=== PATIENT | female | born 1925 | race Caucasian/White ===

== ENCOUNTER 2016-09-03 14:07 | Inpatient (IN) | payer OTHER ==
--- NOTE | ~2016-09-03 | DS ---
Unit #: [id number] #: [id number] Patient: MEGAN HILL [id number] [address] [address] [id number] I MR#: [id number] NAME: MEGAN HILL ROOM: 328 Age: 89 Sex: F Admission Date: 09/03/2016 : 1925 Discharge Date: 09/04/2016 Attending Physician: Adia Diggs M.D. Primary Care Physician: No Primary Care Physician DISCHARGE SUMMARY PRINCIPAL DIAGNOSES 1. Gram negative krissy urinary tract infection with pending urine culture. 2. Toxic metabolic encephalopathy secondary to number one. Now returned to baseline. 3. 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 Discharge creatinine 1.0. 4. Mild hypercalcemia with discharge calcium level of 10.3. 5. Severe dementia. 6. Mild dysphagia. 7. Bradycardia with heart rate into the low 40s. 8. Hypertension. 9. History of diabetes mellitus type 2, currently diet controlled. 10. Hyperlipidemia off of statin therapy. 11. Osteoporosis. 12. History of vitamin B12 deficiency. 13. Asymptomatic bradycardia. CONSULTANTS None. DIAGNOSTIC DATA CT scan of the head without contrast on 09/03/2016 without acute findings. There is generalized cerebral cortical atrophy and chronic ischemic changes in the deep white matter bilaterally. Chest x-ray on 09/03/2016 with stable cardiac enlargement and low lung volumes. No other acute findings. CLINICAL HISTORY/HOSPITAL COURSE Ms. Hill is an 89-year-old female, long-term resident of [facility], who presented to the emergency department with increasing confusion. In the emergency department the patient was found to have urinary tract infection and she was subsequently admitted. The patient was started on empiric Rocephin. She remained afebrile throughout hospitalization and white blood cell count has remained normal. With antibiotic therapy the patient's mental status has returned to her baseline, according to her granddaughter. At baseline the patient is minimally interactive, but can awaken and answer questions, which is how she is acting currently. Review of urine cultures reveals she generally has for the most part pansensitive infection. Thus, I am going to change her to ciprofloxacin and will follow up urine culture tomorrow to ensure treatment is appropriate. I will contact the nursing facility if it is not. Unit #: [id number] #: [id number] Patient: MEGAN HILL The patient did have a mildly elevated creatinine of 1.3 upon presentation, which appears to be close to her baseline. Creatinine today is down to 1.0. The patient's other chronic conditions remain stable. She will be discharged back to the nursing facility today, which I have discussed with her granddaughter. I will note the patient did become bradycardic during hospitalization, with heart rate running in the high 30s to low 40s. I discussed this with the patient's granddaughter, who does not wish for the patient to have any workup or intervention at this time, particularly given it will not improve the patient's quality of life. DISCHARGE CONDITION Stable. DISCHARGE DISPOSITION Discharge back to the nursing facility. DISCHARGE MEDICATIONS 1. Ciprofloxacin 500 mg p.o. b.i.d. for 2 days. 2. Aspirin 81 mg daily. 3. Senna 8.6 mg b.i.d. 4. Milk of Magnesia 3 ml p.o. daily p.r.n. constipation. 5. Claritin 10 mg daily. 6. Alovesto topically to buttocks and geo area daily. 7. Zofran 4 mg p.o. q.6 h. p.r.n. nausea. 8. Tylenol 500 mg p.o. q.4 h. p.r.n. pain or fever. DIET The patient was instructed to follow a pureed diet with thin liquids. ACTIVITY Increase as tolerated. FOLLOWUP The patient will follow up with Dr. Mccullough upon return to the facility. Again, I will follow up urine culture tomorrow to ensure treatment is appropriate. I recommend BMP in approximately one week to follow up hypercalcemia and check PTH if pending. Dictated by... Adia Diggs M.D. Layne TD: 09/04/2016 09:33 JOB #: [id number] CC: Bright Mccullough M.D. Unit #: [id number] #: [id number] Patient: MEGAN HILL DISCHARGE SUMMARY Page 1 of 1 X Adia Diggs MD X DISCHARGE SUMMARY
--- NOTE | ~2016-09-03 | EKG ---
PATIENT: MEGAN JASON UNIT #: [id number] Ventricular Rate: 50 BPM Atrial Rate: 50 BPM P-R Interval: 210 ms QRS Duration: 144 ms Q-T Interval: 490 ms QTC Calculation(Bezet): 446 ms P Vichy: 35 degrees Calculated R Vichy: -23 degrees Calculated T Vichy: 148 degrees Diagnosis Line: Sinus bradycardia with 1st degree A-V block with Diagnosis Line: occasional Premature ventricular complexes Diagnosis Line: Left bundle branch block Diagnosis Line: Abnormal ECG Diagnosis Line: Diagnosis Line: Confirmed by SIMEON DALTON MD ([id number]) on Diagnosis Line: 09/04/2016 10:03:59 PM INTERPRETING MD: HYUN
--- NOTE | ~2016-09-03 | CR72 ---
[facility] A Service of [facility] & [facility] RADIOLOGY TEXT RESULTS PATIENT: MEGAN JASON LOCATION: [facility] 328- : [birth year] UNIT #: [id number] AGE: [address]: Adia Diggs MD SEX: F ORDER DR: [id number] [facility] [address] [facility] [place], [place] [address] [id number] I MR#: [id number] Acc #: [id number] NAME: MEGAN JASON : 1925 SEX: F STUDY DATE/TIME: 09/03/2016 14:47 UNIT: [address] ROOM: [facility] STUDY DESCRIPTION: CR Chest Single View Portable Attending Physician: Hill Jo M.D. Ordering Physician: oSn Jackman D.O. Primary Care Physician: No Primary Care Physician MEDICAL IMAGING REPORT This report is preliminary unless electronic signature is present EXAM Portable chest x-ray HISTORY Altered mental status. Diabetes kidney disease, weakness, short of air began today. FINDINGS AP radiograph of the chest is presented. Poor quality study due to radiographic processing artifact. Stable cardiac enlargement. Lung volumes low. Atelectasis or scarring left lung base. There is no clear indication of acute infectious or inflammatory pulmonary disease. There is no pleural effusion or pneumothorax. No suspicious nodule. Healed granulomatous disease bilaterally. Degenerative changes in the spine and shoulders. No acute-appearing bony abnormality. Dictated by... Tal Ortiz M.D. THIS IS AN ELECTRONICALLY VERIFIED REPORT Tal Ortiz M.D. at 09/05/2016 11:31 AM GERMANIA/trevor TD: 09/03/2016 23:19 JOB #: [id number] MEDICAL IMAGING REPORT Page 1 of 1 COPY
--- NOTE | ~2016-09-03 | CT71 ---
[facility] A Service of [facility] RADIOLOGY TEXT RESULTS PATIENT: MEGAN JASON LOCATION: [facility] : [birth year] UNIT #: [id number] AGE: [address]: Adia Diggs MD SEX: F ORDER DR: [id number] [facility] [address] [place], [place] [address] [id number] MR#: [id number] Acc #: [id number] NAME: MEGAN JASON : 1925 SEX: F STUDY DATE/TIME: 09/03/2016 15:29 UNIT: [address] ROOM: [facility] STUDY DESCRIPTION: CT Head Wo Contrast Attending Physician: Hill Jo M.D. Ordering Physician: Son Jackman D.O. Primary Care Physician: No Primary Care Physician MEDICAL IMAGING REPORT This report is preliminary unless electronic signature is present EXAM CT brain without contrast HISTORY New onset confusion today. TECHNIQUE This CT exam was performed with one or more of the following radiation dose reduction techniques: automatic control, adjustment of mA and/or kV according to patient size, and iterative reconstruction. FINDINGS CT brain without contrast demonstrates moderate generalized cerebral cortical atrophy and mild chronic ischemic changes in the deep white matter bilaterally. No intracranial hemorrhage, mass or edema. No midline shift or ventricular dilatation or extraaxial fluid collection. IMPRESSION 1. No acute findings. 2. Generalized cerebral cortical atrophy and chronic ischemic changes in the deep white matter bilaterally. Dictated by... Hubert Baron M.D. THIS IS AN ELECTRONICALLY VERIFIED REPORT Hubert Baron M.D. at 09/04/2016 10:31 PM DFL/trevor TD: 09/03/2016 23:37 JOB #: [id number] [facility] A Service of [facility] & [facility] RADIOLOGY TEXT RESULTS PATIENT: MEGAN JASON LOCATION: [facility] : [birth year] UNIT #: [id number] AGE: [address]: Adia Diggs MD SEX: F ORDER DR: MEDICAL IMAGING REPORT Page 1 of 1 COPY
--- NOTE | ~2016-09-03 | HP ---
Unit #: [id number] #: [id number] Patient: MEGAN JASON [id number] [address] [address] [id number] I MR#: [id number] NAME: MEGAN JASON ROOM: [address] Age: 89 Sex: F Admission Date: 09/03/2016 : 1925 Attending Physician: Dany Jo M.D. Primary Care Physician: No Primary Care Physician HISTORY AND PHYSICAL CHIEF COMPLAINT Altered mental status. HISTORY OF PRESENT ILLNESS The patient is an 89-year-old female, nonverbal, brought to the emergency room from the [facility] with an altered mental status and hallucinations. The patient had a workup. The patient was found to have a urinary tract infection in the emergency room and is being admitted for the above reasons. The patient's blood work showed UA positive for the 3+ leukocyte esterase, positive nitrites and innumerable urine WBCs and 4+ urine bacteria and know documentation of fever. The history is obtained by speaking to the physician and the nurse at the bedside. PAST MEDICAL HISTORY History of diabetes, hyperlipidemia, hypertension, osteoporosis, dementia, chronic kidney disease stage 3 and B12 deficiency. PAST SURGICAL HISTORY Tonsillectomy. SOCIAL HISTORY The patient lives with her daughter, denies tobacco, alcohol or any illicit drug abuse. FAMILY HISTORY Unable to obtain. REVIEW OF SYMPTOMS Unable to obtain. HOME MEDICATIONS She is on Norvasc, aspirin, Claritin, senna, acetaminophen, milk of magnesia, Aloe [place], Zofran. PHYSICAL EXAMINATION GENERAL APPEARANCE: On examination the patient is lying on a bed not in acute distress. VITAL SIGNS: Temperature is 98, pulse 65, respiratory rate 24, blood pressure 129/55, sating 96% at room air. HEENT: Head atraumatic, normocephalic. Pupils equal, round and reacting to light and accommodation. Extraocular movements are intact. Dry mucous membranes. NECK: Supple. LUNGS: Decreased air entry at the bases. No rhonchi. No wheezing. Unit #: [id number] #: [id number] Patient: MEGAN JASON HEART: Regular rate and rhythm. ABDOMEN: Soft, positive bowel sounds. EXTREMITIES: No cyanosis. No clubbing. NEUROLOGIC: Patient is nonverbal and does not follow commands. DIAGNOSTIC STUDIES LABORATORY DATA: WBC 4.2, hemoglobin 13, hematocrit 40.1, platelet is 186, lactic acid 0.9, ammonia 27 and sodium 139, potassium 4.3, chloride 106, bicarb 27, glucose 105, BUN 30, creatinine 1.3, AST 18, ALT 15, troponin less than 0.05, BNP is 117 and UA showed 3+ leukocyte esterase, positive nitrite, innumerable urine WBCs, 4+ urine bacteria and urine drug screen is negative. ABG shows pH of 7.4, pCO2 of 41, pO2 72.2, bicarb 26.2. IMAGING: Chest x-ray shows low lung volumes, cardiac enlargement, atelectasis, no acute cardiopulmonary findings. CT of the head is negative. CARDIOVASCULAR: EKG shows sinus bradycardia with a first degree AV block with occasional PVCs and left bundle branch block. CODE STATUS DNR. ASSESSMENT 1. The altered mental status. 2. Urinary tract infection. 3. Bradycardia. PLAN Plan to admit the patient to the observation with the telemetry. Continue with IV antibiotic Rocephin and will closely monitor the heart rate and follow with the urine cultures and patient is a DNR and further recommendations will follow. Dictated by Tiny Sims/yolanda TD: 09/03/2016 18:23 JOB #: [id number] HISTORY AND PHYSICAL Page 1 of 1 X DANY JO MD X HISTORY AND PHYSICAL
[~2016-09-03 14:07] MED LIST: ALENDRONATE SOD70 MG PO; AMLODIPINE BESYL5 MG PO; ASPIRIN325 M1 PO; CIPRO PO; DITROPAN PO; DONEPEZIL HCL10 MG PO; FOSAMAX70 MG PO; IBUPROFEN PO; LIPITOR PO; METOPROLOL SUCC50 MG PO; PRAVACHOL PO; PRAVASTATIN SOD40 MG PO; VITAMIN B12-FO1 EACH PO; VITAMIN D2000 UNIT PO; VITAMIN D32000 UNIT PO
[2016-09-03 15:25] LABS: BASOPHIL% 0.8 % (0-2.5); EOSINOPHIL# 0.1 X10e3 (0-0.7); EOSINOPHIL% 3.3 % (0.0-7.0); HEMATOCRIT 40.1 % (35.0-45.0); LYMPHOCYTE# 1.9 X10e3 (1.0-3.5); LYMPHOCYTE% 45.5 % (17.0-45.0); MEAN CELL VOLUME 95.6 FL (83-96); MEAN CORPUSCULAR HEMOGLOBIN 31.1 PG (28-34); MEAN CORPUSCULAR HGB CONC 32.5 g/dL (30-36); MEAN PLATELET VOLUME 7.9 FL (6.5-11.5); MONOCYTE# 0.4 X10e3 (0-1.0); MONOCYTE% 9.7 % (3.0-12.0); NEUTROPHIL# 1.7 X10e3 (1.5-7.1); NEUTROPHIL% 40.7 % (40-75); PLATELET COUNT 186 X10e3 (140-420); RED BLOOD COUNT 4.19 X10e (3.90-5.30); RED CELL DISTRIBUTION WIDTH 13.8 % (11.0-15.5); WHITE BLOOD COUNT 4.2 X10e3 (4.0-10.5)
[2016-09-03 15:28] LABS: URINE SOURCE CLEAN CATCH
[2016-09-03 15:31] LABS: DIFF IND NO
[2016-09-03 15:38] LABS: ALBUMIN SERUM 3.7 g/dL (3.5-5.0); ALKALINE PHOSPHATASE 73 U/L (32-92); ALT (SGPT) 15 U/L (10-40); AST (SGOT) 18 U/L (10-42); BILIRUBIN,TOTAL 0.5 mg/dL (0.2-2.0); BLOOD UREA NITROGEN 30 mg/dL (9-23); BUN/CREATININE RATIO 23.07; CALCIUM SERUM 10.6 mg/dL (8.4-10.2); CARBON DIOXIDE 27 mmol/L (22-31); CHLORIDE 106 mmol/L (100-111); CREATININE SERUM 1.3 mg/dL (0.6-1.4); GLOM FILT RATE Estimated 36.3 mL/min (>60); GLUCOSE FASTING 105 mg/dL (70-110); POTASSIUM 4.3 mmol/L (3.5-5.1); PROTEIN TOTAL SERUM 7.4 g/dL (6.0-8.3); SALICYLATE <4.0 mg/dL; SODIUM 139 mmol/L (135-145)
[2016-09-03 15:39] LABS: POC - CKMB <1.0 ng/mL (0.0-7.9); POC - TROPONIN <0.05 ng/mL (<=0.05)
[2016-09-03 15:39] LABS: ACETAMINOPHEN <10 ug/mL; ALCOHOL BLOOD <5 mg/dL (0); BILIRUBIN, DIRECT <0.1 mg/dL (0.0-0.2); BILIRUBIN,INDIRECT 0.4 mg/dL (0.0-0.9); INR 0.9; PARTIAL THROMBOPLASTIN TIME 22.4 SECONDS (23.5-31.3); PROTHROMBIN TIME (PATIENT) 9.8 SECONDS (9.6-11.5)
[2016-09-03 15:44] LABS: URINE APPEARANCE CLOUDY; URINE BILIRUBIN NEG (NEG); URINE BLOOD 1+ (NEG); URINE COLOR YELLOW; URINE GLUCOSE NEG (NEG); URINE KETONE NEG (NEG); URINE LEUKOCYTE ESTERASE 3+ (NEG); URINE NITRATE POS (NEG); URINE PROTEIN NEG (NEG); URINE SPECIFIC GRAVITY 1.016 (1.003-1.035); URINE UROBILINOGEN 0.2 MG/DL (NEG)
[2016-09-03 15:46] LABS: CULTURE INDICATED? YES; URINE BACTERIA AUWI 4+ (NEGATIVE); URINE SQUAMOUS EPITHELIAL CELL NONE SEEN /[HPF]; UWBCS1 AUWI INNUM (0-5)
[2016-09-03 16:01] LABS: AMPHETAMINE NEG (NEG); BARBITURATES NEG (NEG); BENZODIAZEPINES NEG (NEG); COCAINE NEG (NEG); MARIJUANA NEG (NEG); OPIATES NEG (NEG); TRICYCLIC ANTIDEPRESSANTS NEG (NEG); U METHADONE NEG (NEG)
[2016-09-03 16:20] LABS: ARTERIAL BLD GAS O2 SATURATION 95.5 % (90.0-100.0); ARTERIAL BLOOD GAS HCO3 26.2 mmol/L; ARTERIAL BLOOD GAS PCO2 41.2 mmHg (35.0-45.0); ARTERIAL BLOOD GAS PO2 72.2 mmHg (80.0-100); ARTERIAL BLOOD GAS pH 7.413 (7.350-7.450)
[2016-09-03 16:21] LABS: ARTERIAL BLOOD GAS ALLEN TEST Y; ARTERIAL BLOOD GAS ART SITE RIGHT RADIAL; ARTERIAL BLOOD GAS CARBOXY HB 0.6 %sat (0.0-9.0); ARTERIAL BLOOD GAS MET HB 0.7 %sat (0.0-2.0); ARTERIAL DRAW? YES
[2016-09-03] MEDS ORDERED: AMLODIPINE BESYL5 MG PO (16:30)
[2016-09-03] MEDS ORDERED: ASPIRIN81 M2 PO (16:31)
[2016-09-03] MEDS ORDERED: CLARITIN10 M3 PO (16:31)
[2016-09-03] MEDS ORDERED: SENNA8.6 M1 PO (16:32)
[2016-09-03] MEDS ORDERED: MAPAP500 M1 PO (16:32)
[2016-09-03] MEDS ORDERED: MILK OF MAGNESIA PO (16:34)
[2016-09-03] MEDS ORDERED: ALOE VESTA56 G1 TOP (16:36)
[2016-09-03] MEDS ORDERED: PATIENT'S PHARMACY (16:37)
[2016-09-03] MEDS ORDERED: ZOFRAN PO (16:39)
[2016-09-04 06:17] LABS: HEMATOCRIT 38.4 % (35.0-45.0); HEMOGLOBIN 12.4 gm/dL (12.0-16.0); MEAN CELL VOLUME 94.7 FL (83-96); MEAN CORPUSCULAR HEMOGLOBIN 30.5 PG (28-34); MEAN CORPUSCULAR HGB CONC 32.2 g/dL (30-36); MEAN PLATELET VOLUME 7.9 FL (6.5-11.5); RED BLOOD COUNT 4.05 X10e (3.90-5.30); RED CELL DISTRIBUTION WIDTH 13.8 % (11.0-15.5); WHITE BLOOD COUNT 4.6 X10e3 (4.0-10.5)
[2016-09-04 07:35] LABS: CALCIUM SERUM 10.3 mg/dL (8.4-10.2); GLOM FILT RATE Estimated 49.9 mL/min (>60); POTASSIUM 3.8 mmol/L (3.5-5.1)
[2016-09-07 01:29] LABS: CALCIUM (PTHINTACT) 10.7 mg/dL (8.6-10.4)
== END 2016-09-04 13:41 | disposition home or self-care (01) | DRG 689 ==
LOC: CED 14:07 → CEDOF 15:03 → CED 16:20 → C3A PCU 16:20 → CED 16:32 → CEDOF 16:32 → C3A PCU 16:32 → CEDOF 18:27 → C3A PCU 18:27 → CED 09-04 09:15 → CEDOF 09-04 09:15 → C3A PCU 09-04 13:41
PROVIDERS: Emergency Medicine; Internal Medicine
DX: N39.0 Urinary tract infection, site not specified (principal); G92 Toxic encephalopathy; N17.9 Acute kidney failure, unspecified; E83.52 Hypercalcemia; R13.10 Dysphagia, unspecified; B96.89 Other specified bacterial agents as the cause of diseases classified elsewhere; I12.9 Hypertensive chronic kidney disease with stage 1 through stage 4 chronic kidney disease, or unspecified chronic kidney disease; N18.3 Chronic kidney disease, stage 3 (moderate); F03.90 Unspecified dementia, unspecified severity, without behavioral disturbance, psychotic disturbance, mood disturbance, and anxiety; R00.1 Bradycardia, unspecified; E11.9 Type 2 diabetes mellitus without complications; E78.5 Hyperlipidemia, unspecified; M81.0 Age-related osteoporosis without current pathological fracture; E53.8 Deficiency of other specified B group vitamins
CPT/HCPCS: 36415; 36600; 51702; 70450; 71010; 80048; 80076; 80307; 81003; 82140; 82310; 82553; 82803; 83605; 83880; 83970; 84443; 84484; 85025; 85027; 85610; 85730; 87086; 87088; 87186; 92610; 93005; 96361; 96365; 99285; G0480; G8996-GN; G8997-GN; J0696